=== PATIENT | female | born 1950 | race Caucasian/White ===

== ENCOUNTER 2019-01-15 11:50 | Inpatient (IN) ==
[2019-01-09 17:19] LABS: Basophils # (Auto) 0 K/mcL (0.0-0.3); Basophils % (Auto) 0.4 % (0.0-2.0); Eosinophils # (Auto) 0.3 K/mcL (0.0-0.7); Eosinophils % (Auto) 3.7 % (0.0-7.0); Granulocytes % (Auto) 57.9 % (38.0-78.0); Lymphocytes # (Auto) 2.3 K/mcL (1.5-4.8); Lymphocytes % (Auto) 30.4 % (15.5-49.0); Mean Cell Volume 95.4 fL (80.0-100.0); Mean Corpuscular HGB Conc 33.1 g/dL (31.0-36.0); Monocytes # (Auto) 0.6 K/mcL (0.1-0.9); Monocytes % (Auto) 7.6 % (1.0-12.0); Platelet Count 245 K/mcL (140-440); RBC 4.69 M/mcL (4.00-5.20); Red Cell Distribution Width 13.7 % (11.5-14.5)
[2019-01-09 17:31] LABS: Blood Urea Nitrogen 11 mg/dl (8-23)
[~2019-01-15 11:50] MED LIST: 0.9 % SODIUM CHLORIDE 9 ML, KETOROLAC 30 MG, ROPIVACAINE HCL/PF 49.5 ML, EPINEPHrine 0.... IJ SCH; ACETAMINOPHEN 500 MG TABLET PO SCH; CELECOXIB 200 MG CAPSULE PO SCH; PREGABALIN 75 MG CAPSULE PO SCH; SCOPOLAMINE 1 PATCH PATCH TOPICAL ONE; ceFAZolin 1 GM VIAL IV SCH; oxyCODONE 10 MG TAB.ER.12H PO SCH
[2019-01-15 12:46] LABS: Appearance,Urine CLEAR; Bacteria,Urine 0 /hpf (0); Bilirubin,Urine NEG (NEG); Color,Urine YELLOW; Glucose,Urine (UA) NEGATIVE (NEG); Leukocyte Esterase,Urine 25 /uL (NEG); Mucus,Urine FEW /hpf (0); Protein,Urine NEG (NEG); Specific Gravity,Urine 1.017 (1.000-1.035); Urine Blood NEG mg/dL (<0.03); Urine RBC 1 /hpf (0-1); Urine Squamous Epithelial Cell 1 /hpf (0-4); Urine WBC 1 /hpf (0-4); Urobilinogen,Urine NEG (NEG)
[2019-01-15] MEDS ORDERED: GENTAMICIN SULFATE 800 MG/20 ML VIAL IR ONE (14:06)
[2019-01-15] MEDS ORDERED: ePHEDrine 50 MG/ML AMPUL IV ONE (14:25)
[2019-01-15] MEDS ORDERED: GLYCOPYRROLATE 0.2 MG/ML VIAL IV ONE (14:25)
[2019-01-15] MEDS ORDERED: ROPIVACAINE HCL/PF 20 ML VIAL IJ ONE (14:25)
[2019-01-15] MEDS ORDERED: TRANEXAMIC ACID 1,000 MG/10 ML VIAL IV ONE (14:25)
[2019-01-15] MEDS ORDERED: ONDANSETRON 4 MG/2 ML VIAL IV ONE (14:25)
[2019-01-15] MEDS ORDERED: LIDOCAINE HCL/PF 100 MG/5 ML SYRINGE IV ONE (14:25)
[2019-01-15] MEDS ORDERED: MIDAZOLAM 2 MG/2 ML VIAL IV ONE (14:25)
[2019-01-15] MEDS ORDERED: PHENYLEPHRINE 10 MG/ML VIAL IV ONE (14:25)
[2019-01-15] MEDS ORDERED: PROPOFOL 200 MG/20 ML VIAL IV ONE (14:25)
[2019-01-15] MEDS ORDERED: DEXAMETHASONE 10 MG/ML VIAL IV ONE (14:25)
[2019-01-15] MEDS ORDERED: KETAMINE 100 MG/ML ML IV ONE (14:25)
[2019-01-15] MEDS ORDERED: MEPERIDINE 25 MG/ML SYRINGE IV PRN (14:58)
[2019-01-15] MEDS ORDERED: IPRATROPIUM/ALBUTEROL 3 ML AMPUL.NEB NEB PRN (14:58)
[2019-01-15] MEDS ORDERED: KETOROLAC 15 MG/ML VIAL IV PRN (14:58)
[2019-01-15] MEDS ORDERED: LACTATED RINGERS 250 ML IV PRN (14:58)
[2019-01-15] MEDS ORDERED: NALOXONE HCL 0.4 MG/ML VIAL IV PRN (14:58)
[2019-01-15] MEDS ORDERED: METHOCARBAMOL 1,000 MG/10 ML VIAL IV PRN (14:58)
[2019-01-15] MEDS ORDERED: ONDANSETRON 4 MG/2 ML VIAL IV PRN ×2 (14:58→16:05)
[2019-01-15] MEDS ORDERED: FLUMAZENIL 0.1 MG/ML ML IV PRN (14:58)
[2019-01-15] MEDS ORDERED: BENZOCAINE/MENTHOL 1 LOZENGE PO PRN ×2 (14:58→16:05)
[2019-01-15] MEDS ORDERED: fentaNYL 100 MCG/2 ML VIAL IV PRN (14:58)
[2019-01-15] MEDS ORDERED: LACTATED RINGERS 1,000 ML IV SCH (15:00)
[2019-01-15] MEDS ORDERED: ACETAMINOPHEN 325 MG TABLET PO PRN (16:05)
[2019-01-15] MEDS ORDERED: oxyCODONE/APAP 5/325MG TABLET PO PRN (16:05)
[2019-01-15] MEDS ORDERED: TRANEXAMIC ACID 1,000 MG/10 ML VIAL IV SCH (16:05)
[2019-01-15] MEDS ORDERED: FLEETS ADULT ENEMA PR PRN (16:05)
[2019-01-15] MEDS ORDERED: MAGNESIUM HYDROXIDE 30 ML ORAL.SUSP PO PRN (16:05)
[2019-01-15] MEDS ORDERED: BISACODYL 10 MG SUPP.RECT PR PRN (16:05)
[2019-01-15] MEDS ORDERED: POLYETHYLENE GLYCOL 3350 17 GM PACKET PO PRN (16:05)
[2019-01-15] MEDS ORDERED: HYDROmorphone 2 MG/ML VIAL IV PRN (16:05)
--- NOTE | 2019-01-15 16:05 | Brief Operative Note ---
Date of procedure: 01/15/19 Pre-op diagnosis: Right knee djd Post-op diagnosis: same Procedure: right tka with sharona robot Grafts/Implants: Yes Anesthesia: GETA Complications: none Surgeon: Santos Caballero Customer Operations Specialist: Lincoln López Estimated blood loss (cc): 50 Tourniquet Time (Minutes): 52 Specimens Removed/Pathology: none sent Condition: stable Disposition: PACU
--- NOTE | 2019-01-15 16:30 | Operative Note ---
DATE OF OPERATION: 01/15/2019 PREOPERATIVE DIAGNOSIS: Left knee degenerative arthritis, severe. POSTOPERATIVE DIAGNOSIS: Left knee degenerative arthritis, severe. PROCEDURE: Left total knee arthroplasty. SURGEON: Santos Caballero M.D. ENTERPRISE APPLICATION ANALYST: Lincoln López PA-C. ANESTHESIA: General LMA anesthesia. COMPLICATIONS: None. TOURNIQUET TIME: Approximately 50 minutes. DESCRIPTION OF PROCEDURE: The patient was brought to the operating room and put to sleep with general LMA anesthesia. Once asleep, the patient had the left leg sterilely prepped and draped in the usual sterile fashion. Once done, a timeout was performed and we confirmed the operative site. Once this was done, we then placed Ioban over the skin, exsanguinated the leg, and inflated the tourniquet to 250 pounds of pressure. Once done, we then made a midline incision, midvastus approach performed. Inspection of the knee showed severe arthritis of the knee with 8 degrees of varus and 8 degrees of flexion contracture. With this deformity, we started the case, placing two pins above and below the knee. We registered the center of hip rotation and then registered thirty points in the femur and the tibia. Intraarticular points were registered. We then brought in the robot and after balancing the knee perfectly, we then made the cuts. We trialed the components which fit very nicely. The patella's total thickness was 23 mm to 24 mm. This was cut to 14 mm and a 35 mm patellar button was placed. This covered very nicely. We irrigated thoroughly and all components were cemented without antibiotic cement. No antibiotic cement was placed. We irrigated and took excess cement. It was very well balanced. We then closed the midvastus approach with #1 Stratafix x2 stitches and 2-0 Vicryl. The patient was closed with adhesive closure. The other portals closed with 4-0 nylon. The patient tolerated this well. There was no complication. Sterile bandage applied. Tourniquet time was approximately 52 minutes. LAUREN:nessa Job ID: [id number] Doc ID: [id number] Santos Caballero MD
--- NOTE | 2019-01-15 16:41 | XRay Report ---
CLINICAL INFORMATION: Postsurgical follow-up. Left knee replacement TECHNIQUE: AP and crosstable lateral left knee COMPARISON: None. FINDINGS: Status post left total knee arthroplasty. Anatomic alignment of femoral and tibial components. There is postsurgical soft tissue and intra-articular gas. IMPRESSION: Status post left total knee arthroplasty Interpreted and Authenticated by: Karl King 01/15/19
[2019-01-15] MEDS: 0.45 % SODIUM CHLORIDE 1,000 ML IV SCH (16:54)
[2019-01-15] MEDS: KETOROLAC 15 MG/ML VIAL IV SCH ×2 (16:55→23:35)
[2019-01-15] MEDS ORDERED: TEMAZEPAM 15 MG CAPSULE PO PRN (21:00)
[2019-01-15] MEDS ORDERED: ATORVASTATIN 20 MG TABLET PO SCH (21:00)
[2019-01-15] MEDS ORDERED: SENNOSIDES 1 TABLET PO SCH (21:00)
[2019-01-15] MEDS: FISH OIL 1,000 MG CAPSULE PO SCH (22:09)
[2019-01-15] MEDS: ASPIRIN 325 MG ENTERIC COATED TABLET PO SCH (22:09)
[2019-01-15] MEDS: 0.9 % SODIUM CHLORIDE 10 ML SYRINGE IV SCH (22:09)
[2019-01-15] MEDS: DOCUSATE SODIUM 100 MG CAPSULE PO SCH (22:09)
[2019-01-15] MEDS: ceFAZolin 1 GM VIAL IV SCH (22:10)
[2019-01-16] MEDS: 0.45 % SODIUM CHLORIDE 1,000 ML IV SCH (02:43)
[2019-01-16] MEDS: KETOROLAC 15 MG/ML VIAL IV SCH ×2 (05:57→11:45)
[2019-01-16] MEDS: ceFAZolin 1 GM VIAL IV SCH (05:58)
[2019-01-16] MEDS: 0.9 % SODIUM CHLORIDE 10 ML SYRINGE IV SCH (05:58)
--- NOTE | 2019-01-16 07:49 | Orthopedic Progress Note ---
Subjective Patient information: Note initiated : 01/16/19 at 7:48 am Service Date, if different from initiated Date: [] Patient: Kimberly Starr 68 y/o F admitted on 01/15/19 for Left Total Knee Arthroplasty Chadd. Chief Complaint: [minimal pain and eating well] Objective Vital signs: Vital Signs Temp Pulse Resp BP Pulse Ox 01/16/19 04:00 96 01/16/19 02:48 97.8 F 81 14 115/69 96 01/16/19 00:00 92 01/15/19 22:59 98.1 F 85 14 114/67 92 01/15/19 19:44 97.3 F 83 14 130/79 95 01/15/19 18:06 117/70 98 01/15/19 17:51 127/74 96 01/15/19 17:36 121/72 97 01/15/19 17:23 140/78 99 01/15/19 17:06 134/78 94 01/15/19 16:51 136/86 92 01/15/19 16:40 97.4 F 86 15 144/80 95 01/15/19 16:25 97.3 F 69 8 L 115/62 96 01/15/19 16:20 71 9 L 111/64 96 01/15/19 16:15 78 9 L 107/63 96 01/15/19 16:10 97.8 F 79 10 L 119/64 95 01/15/19 15:45 159/83 92 01/15/19 15:15 171/83 91 01/15/19 12:00 98.5 F 71 18 147/70 93 Intake and Output 01/15/19 01/16/19 01/16/19 21:59 05:59 13:59 Intake Total 1400 1482 Output Total 20 950 100 Balance 1380 532 -100 Intake: IV 982 Sodium Chloride 0.45% 1,000 ml 982 @ 100 mls/hr IV .Q10H [facility] Rx#: [id number] Oral 500 IV - Manual Only 1400 Output: Urine Catheter Amount 850 Straight 850 Void Amount 100 100 Emesis 20 Other: Urine Color Bright Yellow Bright Yellow Straight Bright Yellow Urine Odor Normal Straight Normal # Voids 1 1 Weight 175 lb Intake & Output: Intake & Output 01/15/19 01/16/19 01/16/19 21:59 05:59 13:59 Intake Total 1400 1482 Output Total 20 950 100 Balance 1380 532 -100 Weight 175 lb Intake: IV 982 Sodium Chloride 0.45% 1,000 ml 982 @ 100 mls/hr IV .Q10H [facility] Rx#: [id number] Oral 500 IV - Manual Only 1400 Output: Urine Catheter Amount 850 Straight 850 Void Amount 100 100 Emesis 20 Other: Urine Color Bright Yellow Bright Yellow Straight Bright Yellow Urine Odor Normal Straight Normal # Voids 1 1 Incision: Yes healing Incision clean and dry: Yes Dressing: Yes clean Weight bearing status: full Neurological exam IM: Yes oriented X3, Yes neurovascular intact Extremities exam IM: Yes Foot pink and warm, Yes neurovascular intact - Allied Health Allied health notes reviewed: PT - Labs CBC & BMP: 01/16/19 05:44 01/09/19 15:05 Labs: Orthopedic Labs 01/09/19 15:06 PT 12.8 INR 1.0 01/16/19 01/09/19 05:44 15:06 Hgb 14.8 Hct 38.9 44.7
--- NOTE | 2019-01-16 07:51 | Discharge Summary ---
Ortho Discharge - TKA - Patient Instructions Diet: Regular Diet Activity: activity as tolerated, weight bearing as tolerated Total Knee Protocol: For Total Knee: Start ROM REJI with stationary bike or rocking chair. Work on gaining full extension of knee. Posterior dislocation precautions provided. Hip abductor strengthening and gait training instructions provided. Apply Cryocuff as instructed. Dressing Care: May shower in 2 days Additional Instructions: CMP for home use. - Follow Up Plan Follow Up Appointments: Trey Ott PA-C [Physician Development Editor] - 01/30/19 11:20 am Disposition: Hospice - Home Prognosis: Fair Rehab Potential: Good I certify that the patient requires SNF services: No Overall status at discharge: patient is progressing back to baseline - Orders For Discharge Prescriptions: oxyCODONE/APAP [Percocet 5-325 mg] 1 - 2 tab PO Q4H PRN #20 tab PRN Reason: Pain Additional Discharge Orders: Physical Therapy at Discharge - TKA Location: None Selected CPM Discharge Order Location: None Selected Toilet Riser Discharge Order Location: None Selected Walker Location: None Selected
[2019-01-16] MEDS: FISH OIL 1,000 MG CAPSULE PO SCH (08:25)
[2019-01-16] MEDS: DOCUSATE SODIUM 100 MG CAPSULE PO SCH (08:25)
[2019-01-16] MEDS: ASPIRIN 325 MG ENTERIC COATED TABLET PO SCH (08:26)
[2019-01-16] MEDS ORDERED: CETIRIZINE 10 MG TABLET PO SCH (09:00)
[2019-01-16] MEDS ORDERED: HYDROCHLOROTHIAZIDE 25 MG TABLET PO SCH (09:00)
[2019-01-16] MEDS ORDERED: MULTIVIT,THER IRON,CA,FA & MIN 1 TABLET PO SCH (09:00)
[2019-01-16] MEDS ORDERED: LOSARTAN 50 MG TABLET PO SCH (09:00)
[2019-01-16] MEDS ORDERED: DILTIAZEM 240 MG CAP.XL.24H PO SCH (09:00)
== END 2019-01-16 13:05 | disposition hospice, home (50) | DRG 470 ==
LOC: MEDSUR 11:50
PROVIDERS: ADMIT Orthopaedic Surgery; ATTEND Orthopaedic Surgery